=== PATIENT | female | born 1935 | race Caucasian/White ===

== ENCOUNTER → 2018-07-29 | Outpatient (CLI) | payer MEDICARE, OTHER ==
[~2018-07-29] MED LIST: AMLODIPINE BESY10 MG PO; ASPIRIN325 MG PO; ASPIRIN81 MG PO; ATENOLOL25 MG PO; Aspirin PO; B-121000 MCG PO; BUPROPION HCL200 MG PO; CLONAZEPAM0.5 M1 PO; CLONIDINE HCL0.2 MG PO; ESCITALOPRAM OX10 MG PO; FUROSEMIDE40 MG PO; GABAPENTIN100 MG PO; HYDRALAZINE HCL25 MG PO; KLOR-CON M1010 MEQ PO; LEVOCETIRIZINE D5 MG PO; LISINOPRIL-HCT1 EAC1 PO; LISINOPRIL-HCT1 EACH PO; LOSARTAN-HCTZ1 EAC1 PO; METOPROLOL TART25 MG PO; NAPROXEN500 MG PO; OMEPRAZOLE20 MG PO; OSTEO BI-FLEX1 EAC2 PO; PRESERVISION A1 EACH PO; PROAIR HFA INH8.5 GM INH; VITAMIN B-650 MG PO
--- NOTE | 2018-07-29 16:07 | Diagnostic Imaging Report ---
Exam: Left knee radiographs-4 views History: Left knee pain. Comparison: None. Findings: There is diffuse osteopenia. There are severe lateral compartment predominant tricompartmental degenerative changes with [id number] contact, subchondral sclerosis, and bony osteophyte formation. No evidence of displaced fracture or malalignment. No evidence of joint effusion. 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 No acute radiographic abnormality. Signed by: Dr. Natasha Thornton MD on 07/29/2018 4:03 PM
== END ==
LOC: RAD 14:04
PROVIDERS: ATTEND Nurse Practitioner Acute Care
DX: M25.562 Pain in left knee (principal)

== ENCOUNTER → 2019-07-08 | Outpatient (CLI) | payer MEDICARE ==
--- NOTE | 2019-07-08 14:26 | Diagnostic Imaging Report ---
EXAM: CHEST 2 VIEWS DATE: 07/08/2019 2:03 PM INDICATION: Shortness of breath COMPARISON: 01/17/2016 FINDINGS: The trachea is midline. The lungs are symmetrically expanded without evidence for large focal consolidation, pneumothorax, or significant pleural effusion. A stable calcified granuloma is noted within the peripheral right upper lung zone. The cardiomediastinal silhouette is within normal limits. No acute osseous abnormality is identified. IMPRESSION: No acute cardiopulmonary process identified. Signed by: Dr. Jaylen Domingo MD on 07/08/2019 2:23 PM
== END ==
LOC: RAD 13:52
PROVIDERS: ATTEND Family Medicine
DX: J41.1 Mucopurulent chronic bronchitis (principal)
CPT/HCPCS: 71046